=== PATIENT | female | born 1955 | race Caucasian/White ===

== ENCOUNTER 2023-09-21 20:11 | Emergency (ER) | payer MEDICARE, BC ==
[2023-09-21] MEDS ORDERED: Lidocaine/Prilocaine 2.5-2.5% Crm 5 GM Tube TOP ONE (20:13)
== END 2023-09-21 20:50 | disposition home or self-care (01) ==
LOC: CC.ED 20:11
DX: T23.131A Burn of first degree of multiple right fingers (nail), not including thumb, initial encounter (principal); X15.0XXA Contact with hot stove (kitchen), initial encounter
CPT/HCPCS: 99283; A9270-GY